=== PATIENT | female | born 1965 | race Caucasian/White ===

== ENCOUNTER 2025-04-02 20:20 | Emergency (ER) | payer BC, MEDICAID ==
[~2025-04-02] VITALS: Ht 160 cm; Wt 55.0 kg
[2025-04-02 20:41] VITALS: TEMP 36.8; O2SAT 99
[2025-04-03] MEDS: LIDOCAINE HCL 1% 20ML VIAL INFIL ONE (00:30)
[2025-04-03] MEDS ORDERED: BO1 TP (02:50)
[2025-04-03] MEDS: BACITRACIN ZINC OINT UDPKT TOP ONE (02:56)
[2025-04-03] MEDS: TETANUS, DIPHTHERIA, PERTUSSIS VAC/PF 0.5ML (>10YR OLD) IM ONE (03:04)
[2025-04-03 03:10] VITALS: BP 121/63; PULSE 70; RESP 15; O2SAT 99
== END 2025-04-03 03:13 | disposition home or self-care (01) ==
LOC: ER 20:47
DX: S61.412A Laceration without foreign body of left hand, initial encounter (principal); E78.5 Hyperlipidemia, unspecified; X58.XXXA Exposure to other specified factors, initial encounter; Y93.89 Activity, other specified; Y92.89 Other specified places as the place of occurrence of the external cause; Y99.8 Other external cause status
CPT/HCPCS: 12001; 73130; 90471; 90715; 99283; J2003